=== PATIENT | female | born 1965 | race Two or more races ===

== ENCOUNTER 2021-03-30 07:36 | Outpatient (CLI) | payer OTHER | END 2021-03-30 07:48 | disposition home or self-care (01) | LOC: RX STUDY 07:36 | DX: R13.19 Other dysphagia (principal) ==

== ENCOUNTER 2021-04-02 07:57 | Outpatient (CLI) | payer OTHER | END 2021-04-02 08:12 | disposition home or self-care (01) | LOC: NUCLEAR 07:57 | DX: R11.2 Nausea with vomiting, unspecified (principal) | CPT/HCPCS: 78264; A9541 ==